=== PATIENT | male | born 1970 | race Caucasian/White ===

== ENCOUNTER 2024-02-04 12:30 | Emergency (ER) | payer BC, SELFPAY ==
[2024-02-04 12:31] VITALS: BP 168/110; PULSE 103; RESP 16; TEMP 36.8; O2SAT 96; BMI 22.7
--- NOTE | 2024-02-04 13:08 | EDS_ITS ---
HPI History of Present Illness Chief Complaint: Abd Pain Detail of Chief Complaint: Intermittent left lower quadrant/inguinal pain and fullness Informant: patient Onset/Context/Timing Onset: Weeks Context: Sudden Onset Timing: Intermittent Quality: Pain Location: Right inguinal region Current Severity: Mild Maximum Severity: Moderate Worsened by: Lifting Relieved by: Lying supine Associated Symptoms Associated Symptoms: None Narrative Narrative: Patient is a 53-year-old male. He has no past medical history on no medication. Patient appears slightly uncomfortable. Patient presents for evaluation of pain right inguinal area. Asked if he noted a bulge or mass. He stated that it appears larger on the right. He reports change in color of his urine depending on hydration. He denies dysuria or frequency. He denies hematuria. He denies scrotal or testicular pain. He denies nausea or vomiting. He denies flank pain. He has no history of renal ureterolithiasis. Prior similar symptoms: No Recent Illness/Hospitalization: No PFSH PFS Medical History Abdominal pain Allergy/AdvReac Type Severity Reaction Status Date / Time No Known Allergies Allergy Verified 02/04/24 12:31 Social History (Updated 02/04/24 @ 13:[address] Bradley Mariee MD) household members: none Smoking Status: Unknown if ever smoked ROS ROS ED Constitutional Constitutional ED: Denies chills, fever(s), subjective or sweats Cardiovascular Cardiovascular: Denies chest pain Respiratory/Chest Respiratory/Chest: Denies cough or dyspnea Gastrointestinal Gastrointestinal: Reports abdominal pain; Denies constipation, diarrhea, nausea or vomiting Genitourinary Genitourinary ED: Denies dysuria, hematuria or urinary frequency Musculoskeletal Musculoskeletal: Denies back pain Integumentary Denies rash EXAM Physical Exam Const Vital Signs: 02/04/24 12:31 Temperature 98.2 F Temperature Source Temporal Pulse Rate 103 H Respiratory Rate 16 Blood Pressure 168/110 H Blood Pressure Mean 129 Pulse Ox 96 Oxygen Delivery Method Room Air Positive well nourished and well developed General Appearance ED: well developed; Negative for cyanotic, diaphoretic or pallor HEENT Reports moist mucous membranes HEENT Narrative: Head is atraumatic normocephalic. Ears normal. Nares patent. Eyes PERRL and EOMs intact bilaterally General Eye ED: Negative for pale conjunctiva or scleral icterus Resp normal respiratory effort Cardio regular rate and regular rhythm GI normal to inspection, nondistended, normoactive bowel sounds and non-distended; Negative for non-tender, hepatosplenomegaly or no masses GI Narrative: Patient has a bulge consistent with an indirect hernia on the right. The hernia is reducible. Palpation: soft and tender other (Right inguinal region consistent with an indirect hernia) Narrative: No gross abnormality, normal external genitalia Extremity normal to inspection Neuro oriented x3 and CN's II-XII intact bilaterally Sensorium / Orientation: alert Psych mental status grossly normal Skin no rashes or lesions noted, no wounds and skin turgor normal General Skin Exam: Negative for jaundice or pallor MDM MDM MDM Narrative Medical decision making narrative: Differential diagnosis would include renal/ureterolithiasis, juan lymphadenopa thy, STI, hernia,. Physical exam is consistent with hernia most likely indirect. He was referred to surgeon on-call Dr. Mcneil. Discharge Plan Triage Chief Complaint: Abd Pain ED Provider: Bradley Mariee Dx/Rx/DC Orders Clinical Impression: Indirect right inguinal hernia, Elevated blood-pressure reading, without diagnosis of hypertension Referrals: Edison Mcneil MD [Med Staff - Active Staff] - 3-5 Days Myrna Macdonald MD [Med Staff - Active Staff] - 1 Week Activity Restrictions/Additional Instructions: Contact Dr. Macdonald's office for blood pressure monitoring Contact Dr. Mcneil's office for your reducible indirect right inguinal hernia Print Language: Turkmen Disposition Disposition: Home, Self Care
[2024-02-04 13:34] VITALS: BP 171/113
== END 2024-02-04 13:34 | disposition home or self-care (01) ==
LOC: ED 13:34
PROVIDERS: Emergency Provider Emergency Medicine; Visit Provider Emergency Medicine
DX: K40.90 Unilateral inguinal hernia, without obstruction or gangrene, not specified as recurrent (principal); R03.0 Elevated blood-pressure reading, without diagnosis of hypertension
CPT/HCPCS: 99283; A4216

== ENCOUNTER → 2025-04-21 | Outpatient (CLI) | payer BC, SELFPAY ==
--- NOTE | 2024-05-21 13:36 | PAT.ANE_ITS ---
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 When Was Last Pacemaker Check QUESTION #4 FULL TEXT: You/Your Family Experience fever (hyperthermia) with Anesthesia Last Oral Intake Last Oral intake: Last Oral Intake NPO since Meds taken in AM with sips of water? Meds patient instructed to take am of surgery PONV PONV - longshore equipment operator: PONV - longshore equipment operator Female No 05/18/24 10:05 HX of Motion Sickness Yes 05/18/24 10:05 HX of N/V After Surgery No 05/18/24 10:05 Non-Smoker Yes 05/18/24 10:05 Duration of Surgery greater Yes 05/18/24 10:05 than 60 minutes Number of Risk Factors 3 05/18/24 10:05 PONV Score Moderate Risk 05/18/24 10:05 Height & Weight Height & Weight: Anesthesia: Height & Weight Height 6 ft 3 in 02/11/24 14:33 Respiratory Assessment Respiratory Assessment - longshore equipment operator: Respiratory Tract Infection Hx - longshore equipment operator Hx Respiratory Tract Infection No 05/18/24 10:05 STOP Sleep Apnea STOP Sleep Apnea - longshore equipment operator: STOP Sleep Apnea - longshore equipment operator Hx Hypertension Yes: WATCHING BP-WHITE COAT- 05/18/24 10:05 NO MEDS Hx Sleep Apnea No 05/18/24 10:05 CPAP BIPAP Do you snore loudly (louder No 05/18/24 10:05 than talking or can be heard Do you often feel tired/ No 05/18/24 10:05 fatigued/ sleepy during daytime? Has anyone observed you stop No 05/18/24 10:05 breathing during sleep? STOP Results Negative 05/18/24 10:05 QUESTION #5 FULL TEXT : Do you snore loudly (louder than talking or can be heard through closed doors)? 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 Tobacco Use Smoking Status Former smoker 05/18/24 10:05 Hx Tobacco Use No 05/18/24 10:05 Years Smoking Packs Smoked per Day Smoking Cessation Date was Yes - quit smoking within 15 05/18/24 10:05 within the last 15 years years Hx Smoking Cessation Date Hx Smoking Cessation Counseling Hematologic Medial History Hematologic Hx - longshore equipment operator: Hematologic Medical Hx - bar porter Hx of Blood Transfusion No 05/18/24 10:05 Hx of Transfusion in last 3 No 05/18/24 10:05 Months Date of Last Transfusion (if within last 3 months) Ever experience any problems No 05/18/24 10:05 with transfusion(s)? Specify any problems Hx of Preganancy in last 3 N/A 05/18/24 10:05 Months Nurse Filling Out Transfusion VCHRISTIN 05/18/24 10:05 & Questions: Date: 05/18/24 05/18/24 10:05 Time: 10:06 05/18/24 10:05 Patient unable to answer at this time (ie. confused, unrespo /Reproduction History /Reproductive History - longshore equipment operator: /Reproductive Hx- longshore equipment operator Hx Now Gestational Age (in weeks): EDC: Hx Hx Para Hx Section SAB PFSH Medical History (Updated 05/18/24 @ 10:13 by Carmen Downing) Hypertension Wears dentures Wears glasses Loose, teeth Marijuana use Alcohol use Back pain Former smoker Shortness of breath on exertion Abdominal pain Home Medications ?Medication ?Instructions ?Recorded ?Last Taken ?Type multivitamin with minerals-folic 1 tab PO QDAY 02/11/24 Unknown History acid 80 mcg chewable tablet (Centrum Adult 50 Plus) acetaminophen 325 mg tablet 650 mg PO Q4H PRN pain 05/18/24 Unknown History (Tylenol) Allergy/AdvReac Type Severity Reaction Status Date / Time No Known Allergies Allergy Verified 05/18/24 09:53 Surgical History (Updated 05/18/24 @ 10:05 by Carmen Downing) History of bladder surgery History of mandibular surgery Social History (Updated 02/04/24 @ 13:[address] Bradley Mariee MD) household members: none Smoking Status: Former smoker Audit: Pertinent Findings Pertinent Findings EKG Perinent findings: 05/21/2024 normal sinus rhythm 92 bpm right axis deviation Recommendation Anesthesia Recommendation Anesthesia recommendation: OPTIMIZED for anesthesia
== END | disposition home or self-care (01) ==
LOC: PAT 13:39
PROVIDERS: Referring Provider Surgery; Visit Provider Surgery
DX: Z01.810 Encounter for preprocedural cardiovascular examination (principal)
CPT/HCPCS: 93005